=== PATIENT | female | born 1970 | race Caucasian/White ===

== ENCOUNTER 2017-04-07 09:18 | Emergency (ER) | payer MEDICAID ==
[~2017-04-07] VITALS: Ht 162.6 cm; Wt 63.5 kg
[~2017-04-07 09:18] MED LIST: IBUP-974 PO
[2017-04-07 09:38] VITALS: BP 169/73
--- NOTE | 2017-04-07 09:44 | NUR ---
Pt placed in bed 8.
--- NOTE | 2017-04-07 10:01 | NUR ---
46/F c/o nausea and anxiety approximately 2 hours. Patient had brought in her daughter for a suture removal and states "I started to feel anxious and nauseous as he was taking out the sutures." Pt c/o chills and nausea, denies vomiting. Denies pain. AOX4, japanese speaking. VSS.
--- NOTE | 2017-04-07 11:11 | NUR ---
Patient being evaluated by Dr. Archuleta at bedside.
[2017-04-07] MEDS ORDERED: ONDANSETRON 4 MG ODT PO ONE (11:20)
--- NOTE | 2017-04-07 11:47 | NUR ---
Dr. Archuleta re-evaluating patient at bedside. Pt verbalizes "I feel much better." Pt smiling and appears calm.
[2017-04-07 12:06] VITALS: BP 149/96
--- NOTE | 2017-04-07 12:07 | NUR ---
Patient discharged with v/s stable. Written and verbal after care instructions given and explained. Patient verbalized understanding. Ambulatory with steady gait. All questions addressed prior to discharge. Advised to follow up with PMD.
== END 2017-04-07 12:07 | disposition home or self-care (01) ==
LOC: MED 09:18
DX: F41.9 Anxiety disorder, unspecified (principal); I10 Essential (primary) hypertension
CPT/HCPCS: 99283; S0119

== ENCOUNTER 2017-07-23 15:57 | Emergency (ER) | payer MEDICAID ==
[~2017-07-23] VITALS: Ht 154.9 cm; Wt 71.2 kg
[2017-07-23 16:41] VITALS: BP 131/86
--- NOTE | 2017-07-23 18:00 | NUR ---
PATIENT C/O MID LFT ABDOMINAL PAIN 8/10 X 1 WK WITH NAUSEA; DENIES V/D HX OF HTN;RX OF LISINOPRIL 10MG QD .SKIN IS PINK/WARM/DRY; AAOX4 WITH EVEN AND STEADY GAIT; LUNGS CLEAR BL; HR EVEN AND REGULAR; PT DENIES ANY FEVER, CP, SOB, OR COUGH AT THIS TIME; PATIENT STATES PAIN OF 8/10 AT THIS TIME; VSS; PATIENT POSITIONED FOR COMFORT; HOB ELEVATED; BEDRAILS UP X2; BED DOWN. ER MD MADE AWARE OF PT STATUS.
--- NOTE | 2017-07-23 19:00 | NUR ---
PT RESTING ON BED;NO ACUTE DISTRESS NOTED;WILL CONTINUE TO MONITOR PT.
[2017-07-23 19:15] LABS: BASOPHILS # (AUTO) 0.2 K/uL (0.00-0.22); BASOPHILS % (AUTO) 1.4 % (0.0-2.0); EOSINOPHILS # (AUTO) 0.1 K/uL (0-0.4); EOSINOPHILS % (AUTO) 1.1 % (0.0-4.0); HEMATOCRIT 38.8 % (36-48); LYMPHOCYTES # (AUTO) 2.4 K/uL (2.5-16.5); LYMPHOCYTES % (AUTO) 21.3 % (20.5-51.1); MEAN CORPUSCULAR HEMOGLOBIN 29 pg (27-31); MEAN CORPUSCULAR HGB CONC 34 g/dL (33-37); MEAN CORPUSCULAR VOLUME 85 fL (80-94); MONOCYTES # (AUTO) 0.8 K/uL (0.8-1.0); MONOCYTES % (AUTO) 7.6 % (1.7-9.3); NEUTROPHILS # (AUTO) 7.6 K/uL (1.8-7.7); NEUTROPHILS % (AUTO) 68.6 % (42.2-75.2); PLATELET COUNT (AUTO) 192 K/uL (140-450); RED BLOOD CELL COUNT(AUTO) 4.55 MIL/uL (4.20-5.40); RED CELL DISTRIBUTION WIDTH 12.7 % (11.6-13.7); WHITE BLOOD COUNT (AUTO) 11.1 K/uL (4.8-10.8)
--- NOTE | 2017-07-23 19:16 | NUR ---
Pt report given to DAMEON HESS. Transfer of care at this time.
[2017-07-23 19:22] LABS: APPEARANCE,URINE CLEAR (CLEAR); BILIRUBIN,URINE NEGATIVE (NEGATIVE); BLOOD, URINE TRACE-I (NEGATIVE); COLOR,URINE YELLOW (YELLOW); LEUKOCYTE ESTERASE ,URINE NEGATIVE (NEGATIVE); NITRITE, URINE NEGATIVE (NEGATIVE); UGLUCOSE NEGATIVE (NEGATIVE)
[2017-07-23 19:37] LABS: CARBON DIOXIDE 26.6 mmol/L (21-32); CREATININE 0.7 mg/dL (0.6-1.3); POTASSIUM 3.6 mmol/L (3.5-5.1); TOTAL BILIRUBIN 0.3 mg/dL (0.0-1.0)
[2017-07-23 19:48] LABS: RBC,URINE 0-5 (RARE) /HPF (0-5); WBC,URINE 0-5 (RARE) /HPF (0-5)
[2017-07-23] MEDS ORDERED: KETOROLAC 30 MG/ML VIAL IM ONE (19:50)
[2017-07-23] MEDS ORDERED: ONDANSETRON 4 MG ODT PO ONE (19:50)
[2017-07-23 20:38] VITALS: BP 132/78
--- NOTE | 2017-07-23 20:38 | NUR ---
Patient discharged with v/s stable. Written and verbal after care instructions given and explained. Patient alert, oriented and verbalized understanding of instructions. Ambulatory with steady gait. All questions addressed prior to discharge. ID band removed. Patient advised to follow up with PMD. Rx of NAPROSYN 500MG ONE TAB 2 TIMES A DAY PRN PAIN given. Patient educated on indication of medication including possible reaction and side effects. Opportunity to ask questions provided and answered.
== END 2017-07-23 20:38 | disposition home or self-care (01) ==
LOC: MED 15:57
DX: R10.9 Unspecified abdominal pain (principal); R11.0 Nausea; I10 Essential (primary) hypertension
CPT/HCPCS: 36415; 74176; 80053; 81001; 81025; 83690; 85025; 96372; 99285; J1885; S0119

== ENCOUNTER 2019-10-26 16:21 | Emergency (ER) | payer MEDICAID ==
[~2019-10-26] VITALS: Ht 153.7 cm; Wt 72.1 kg
[2019-10-26 16:23] VITALS: BP 156/78
--- NOTE | 2019-10-26 16:23 | NUR ---
Patient JACOB DAS, triaged by RN and transferred to ED lobby to wait for an available bed.
--- NOTE | 2019-10-26 17:35 | NUR ---
TO ED 02, AMBULATORY.
--- NOTE | 2019-10-26 18:00 | NUR ---
BIB SELF C/O LEFT LOWER QUADRANT ABDOMINAL PAIN X3 WEEKS ACCOMPANIED WITH NAUSEA, PT DENIES ANY VOMITING/DIARRHEA. MASS FELT IN LEFT LOWER ABD, PT SAYS IT IS A CYST. REBOUND TENDERNESS PRESENT IN LOWER LEFT QUADRANT. DENIES ANY SOB/CHEST PAIN, BACK PAIN. BOWEL SOUNDS NORMOACTIVE IN ALL QUADRANTS. RESP EVEN AND UNLABORED. AAOX4, CAP REFILL <3. SKIN COOL/DRY. MUCOUS MEMBRANES PINK/MOIST. PMH: HTN NKA
[2019-10-26] MEDS ORDERED: MORPHINE SULFATE 4 MG/ML SYR IVP ONE (18:15)
[2019-10-26] MEDS ORDERED: ONDANSETRON 4 MG/2 ML VIAL IVP ONE (18:15)
[2019-10-26 18:35] LABS: BASOPHILS % (AUTO) 0.3 % (0.0-2.0); EOSINOPHILS # (AUTO) 0.1 K/uL (0-0.4); EOSINOPHILS % (AUTO) 0.8 % (0.0-4.0); HEMATOCRIT 37.6 % (36-48); LYMPHOCYTES # (AUTO) 2.4 K/uL (2.5-16.5); LYMPHOCYTES % (AUTO) 29.7 % (20.5-51.1); MEAN CORPUSCULAR HEMOGLOBIN 25 pg (27-31); MEAN CORPUSCULAR HGB CONC 32 g/dL (33-37); MEAN CORPUSCULAR VOLUME 76.9 fL (80-94); MONOCYTES # (AUTO) 0.5 K/uL (0.8-1.0); MONOCYTES % (AUTO) 6.4 % (1.7-9.3); NEUTROPHILS # (AUTO) 5.1 K/uL (1.8-7.7); NEUTROPHILS % (AUTO) 62.8 % (42.2-75.2); PLATELET COUNT (AUTO) 212 K/uL (140-450); RED BLOOD CELL COUNT(AUTO) 4.89 MIL/uL (4.20-5.40); RED CELL DISTRIBUTION WIDTH 20.4 % (11.6-13.7); WHITE BLOOD COUNT (AUTO) 8.2 K/uL (4.8-10.8)
[2019-10-26 18:50] LABS: ANION GAP 11.9 (8-16); CARBON DIOXIDE 25.8 mmol/L (21-32); CREATININE 0.7 mg/dL (0.6-1.3); POTASSIUM 3.7 mmol/L (3.5-5.1); TOTAL BILIRUBIN 0.2 mg/dL (0.0-1.0)
--- NOTE | 2019-10-26 20:07 | NUR ---
PT RESTING AT BEDSIDE. NO COMPLAINTS OF PAIN AT THIS TIME. VSS. ALL NEEDS MET. AT BEDSIDE
--- NOTE | 2019-10-26 20:55 | NUR ---
Patient discharged with v/s stable. Written and verbal after care instructions given and explained. Patient alert, oriented and verbalized understanding of instructions. Ambulatory with steady gait. Accompanied by . All questions addressed prior to discharge. ID band removed. Patient advised to follow up with PMD. Rx of NORCO, IBUPROFEN, AND ZOFRAN given. Patient educated on indication of medication including possible reaction and side effects. Opportunity to ask questions provided and answered.
[2019-10-26 20:56] LABS: APPEARANCE,URINE CLEAR (CLEAR); BILIRUBIN,URINE NEGATIVE (NEGATIVE); BLOOD, URINE 1+ (NEGATIVE); COLOR,URINE YELLOW (YELLOW); LEUKOCYTE ESTERASE ,URINE NEGATIVE (NEGATIVE); NITRITE, URINE NEGATIVE (NEGATIVE); UGLUCOSE NEGATIVE (NEGATIVE)
[2019-10-26 21:00] VITALS: BP 125/75
[2019-10-26 21:33] LABS: RBC,URINE 0-5 /HPF (0-5); WBC,URINE 0-5 /HPF (0-5)
== END 2019-10-26 20:55 | disposition home or self-care (01) ==
LOC: MED 16:21
DX: N83.202 Unspecified ovarian cyst, left side (principal); I10 Essential (primary) hypertension; Z79.899 Other long term (current) drug therapy
CPT/HCPCS: 36415; 76856; 80053; 81001; 81025; 83690; 85025; 93976; 96374; 96375; 99284; J2270; J2405; Q0092

== ENCOUNTER 2021-04-16 15:09 | Emergency (ER) | payer MEDICAID ==
[~2021-04-16] VITALS: Ht 157.5 cm; Wt 71.2 kg
[2021-04-16 15:31] VITALS: BP 188/107
--- NOTE | 2021-04-16 16:19 | NUR ---
50 Y/O F BIB FAMILY FROM HOME, C/O LOSS OF CENTRAL VISION IN R EYE, DENIES EYE INJURY, EYE PAIN. PT STATES SHE LOST VISION TODAY AROUND 0400. DENIES CP, FEVERS, SOB, N/V/D. PMH: HTN NKA MED: LISINOPRIL
--- NOTE | 2021-04-16 16:28 | NUR ---
Dr. Holland at the bedside evaluating patient.
--- NOTE | 2021-04-16 16:41 | NUR ---
Dr. Holland at the bedside performing ultrasound.
== END 2021-04-16 17:04 | disposition home or self-care (01) ==
LOC: MED 15:09
DX: H53.9 Unspecified visual disturbance (principal); I10 Essential (primary) hypertension; Z79.899 Other long term (current) drug therapy
CPT/HCPCS: 99284

== ENCOUNTER 2021-12-08 20:37 | Emergency (ER) | payer MEDICAID ==
[~2021-12-08] VITALS: Ht 154.9 cm; Wt 71.7 kg
[2021-12-08 20:55] VITALS: BP 188/102
--- NOTE | 2021-12-08 20:55 | NUR ---
NOTIFED ERMD OF RAMIREZ SYMPTOMS, ERMD TO EVAL PATIENT IN TRIAGE.
[2021-12-08] MEDS ORDERED: KETOROLAC 30 MG/ML VIAL IM ONE (22:35)
[2021-12-08] MEDS ORDERED: NAPR-54 PO (22:45)
[2021-12-08 23:31] VITALS: BP 148/72
== END 2021-12-08 23:31 | disposition home or self-care (01) ==
LOC: MED 20:37
DX: G44.209 Tension-type headache, unspecified, not intractable (principal); K04.7 Periapical abscess without sinus; I10 Essential (primary) hypertension; Z79.899 Other long term (current) drug therapy; Z88.5 Allergy status to narcotic agent
CPT/HCPCS: 96372; 99283; J1885

== ENCOUNTER 2021-12-15 18:49 | Emergency (ER) | payer MEDICAID ==
[~2021-12-15] VITALS: Ht 154.9 cm; Wt 73.2 kg
[~2021-12-15 18:49] MED LIST changes: +NAPR-54 PO
[2021-12-15 18:52] VITALS: BP 170/108
--- NOTE | 2021-12-15 19:00 | NUR ---
JAYLA, HANDED ON URINE CUP.
--- NOTE | 2021-12-15 20:00 | NUR ---
SEEN AND EXAMINED BY AISSATOU WITH ORDERS AND CARRIED OUT
[2021-12-15] MEDS ORDERED: KETOROLAC 30 MG/ML VIAL IM ONE (20:10)
[2021-12-15] MEDS ORDERED: PROCHLORPERAZINE 5 MG TAB PO ONE (20:10)
--- NOTE | 2021-12-15 20:20 | NUR ---
MEDICATED PER ERMDS ORDER, TOLERATED WELL.
[2021-12-15 21:25] VITALS: BP 140/82
[2021-12-15] MEDS ORDERED: KETOROLAC 30 MG/ML VIAL ONE (21:28)
[2021-12-15] MEDS ORDERED: PROCHLORPERAZINE 5 MG TAB ONE (21:29)
== END 2021-12-15 21:25 | disposition home or self-care (01) ==
LOC: MED 18:49
DX: G43.909 Migraine, unspecified, not intractable, without status migrainosus (principal); I10 Essential (primary) hypertension; Z79.899 Other long term (current) drug therapy; Z88.5 Allergy status to narcotic agent
CPT/HCPCS: 70450; 96372; 99284; J1885; Q0163; Q0164

== ENCOUNTER 2022-02-02 17:35 | Emergency (ER) | payer MEDICAID ==
[~2022-02-02] VITALS: Ht 165.1 cm; Wt 70.8 kg
[2022-02-02 17:59] VITALS: BP 163/82
--- NOTE | 2022-02-02 18:34 | NUR ---
51 Y/O FEMALE BIB C/O EPIGASTRIC PAIN 06/29 X2DAYS. DENIES N/V. DENIES ANY MEDICATION FOR PAIN. PMH: HTN ALLERGIES: MORPHINE
--- NOTE | 2022-02-02 18:34 | NUR ---
PT AMBULATED TO BED 4 WITH STEADY GAIT
[2022-02-02 19:08] LABS: ALBUMIN 4.1 g/dL (3.4-5.0); ANION GAP 9.9 (8-16); CARBON DIOXIDE 28.8 mmol/L (21-32); CREATININE 0.9 mg/dL (0.6-1.3); POTASSIUM 3.7 mmol/L (3.5-5.1); TOTAL BILIRUBIN 0.3 mg/dL (0.0-1.0)
[2022-02-02] MEDS ORDERED: KETOROLAC 60 MG/2 ML VIAL IM ONE (19:15)
--- NOTE | 2022-02-02 19:25 | NUR ---
Pt report given to BEBE JANSEN. Transfer of care at this time.
[2022-02-02 19:26] LABS: BASOPHILS % (AUTO) 0.3 % (0.0-2.0); EOSINOPHILS # (AUTO) 0.1 K/uL (0-0.4); EOSINOPHILS % (AUTO) 1.6 % (0.0-4.0); HEMATOCRIT 39.9 % (36-48); HEMOGLOBIN 13.7 g/dL (12.0-16.0); LYMPHOCYTES # (AUTO) 2.5 K/uL (2.5-16.5); LYMPHOCYTES % (AUTO) 36.6 % (20.5-51.1); MEAN CORPUSCULAR HEMOGLOBIN 30 pg (27-31); MEAN CORPUSCULAR HGB CONC 34 g/dL (33-37); MEAN CORPUSCULAR VOLUME 87.3 fL (80-94); MONOCYTES # (AUTO) 0.4 K/uL (0.8-1.0); MONOCYTES % (AUTO) 5.7 % (1.7-9.3); NEUTROPHILS # (AUTO) 3.9 K/uL (1.8-7.7); NEUTROPHILS % (AUTO) 55.8 % (42.2-75.2); PLATELET COUNT (AUTO) 197 K/uL (140-450); RED BLOOD CELL COUNT(AUTO) 4.57 MIL/uL (4.20-5.40); RED CELL DISTRIBUTION WIDTH 13.9 % (11.6-13.7)
--- NOTE | 2022-02-02 19:30 | NUR ---
RECIEVED REPORT FROM SHAVON
[2022-02-02] MEDS ORDERED: DICYCLOMINE HCL LIQUID 20 MG, ALUMINUM HYD/MAG/SIMETHICONE 30 ML, LIDOCAINE VISCOUS 2% ... PO ONE ×3 (19:45)
[2022-02-02] MEDS ORDERED: IBUP-2213 PO (19:52)
[2022-02-02] MEDS ORDERED: OMEP40EC24 PO (19:52)
[2022-02-02] MEDS ORDERED: DICYCLOMINE HCL LIQUID 10 MG/5 ML UDC ONE (19:57)
[2022-02-02] MEDS ORDERED: ALUMINUM HYD/MAG/SIMETHICONE 30 ML UDC ONE (19:57)
[2022-02-02 20:02] VITALS: BP 181/103
--- NOTE | 2022-02-02 20:02 | NUR ---
Patient discharged with v/s stable. Written and verbal after care instructions given and explained. Patient alert, oriented and verbalized understanding of instructions. Ambulatory with steady gait. All questions addressed prior to discharge. ID band removed. Patient advised to follow up with PMD. Rx of IBUPROFEN OMEPRAZOLE given. Patient educated on indication of medication including possible reaction and side effects. Opportunity to ask questions provided and answered.
== END 2022-02-02 20:02 | disposition home or self-care (01) ==
LOC: MED 17:35
DX: R10.13 Epigastric pain (principal); I10 Essential (primary) hypertension; Z79.1 Long term (current) use of non-steroidal anti-inflammatories (NSAID); Z88.5 Allergy status to narcotic agent
CPT/HCPCS: 36415; 80053; 83690; 85025; 96372; 99283; J1885

== ENCOUNTER 2023-01-06 20:23 | Emergency (ER) | payer MEDICAID ==
[~2023-01-06] VITALS: Ht 154.9 cm; Wt 72.1 kg
[~2023-01-06 20:23] MED LIST changes: +IBUP-2213 PO; +OMEP40EC24 PO
[2023-01-06 21:42] VITALS: BP 158/79
--- NOTE | 2023-01-06 23:58 | NUR ---
Covid/Influ swab collected and sent to lab.
[2023-01-07] MEDS ORDERED: BENZ-300 PO (00:02)
[2023-01-07] MEDS ORDERED: BENZ200C4 PO (00:02)
[2023-01-07] MEDS ORDERED: AMOX500C25 PO (00:02)
--- NOTE | 2023-01-07 00:15 | NUR ---
Patient discharged with v/s stable. Written and verbal after care instructions given and explained. Patient alert, oriented and verbalized understanding of instructions. All questions addressed prior to discharge. ID band removed. Patient advised to follow up with PMD. Rx sent to preferred pharmacy. Patient educated on indication of medication including possible reaction and side effects. Opportunity to ask questions provided and answered.
[2023-01-07 00:24] VITALS: BP 158/79
== END 2023-01-07 00:15 | disposition home or self-care (01) ==
LOC: MED 20:23
DX: J02.9 Acute pharyngitis, unspecified (principal); Z20.822 Contact with and (suspected) exposure to COVID-19; I10 Essential (primary) hypertension; Z79.899 Other long term (current) drug therapy; Z79.1 Long term (current) use of non-steroidal anti-inflammatories (NSAID); Z79.2 Long term (current) use of antibiotics; Z88.5 Allergy status to narcotic agent
CPT/HCPCS: 99283

== ENCOUNTER 2023-07-15 17:04 | Emergency (ER) | payer MEDICAID ==
[~2023-07-15] VITALS: Ht 152.4 cm; Wt 76.7 kg
[~2023-07-15 17:04] MED LIST changes: +AMOX500C25 PO; +BENZ-300 PO; +BENZ200C4 PO
[2023-07-15 17:15] VITALS: BP 169/86; PULSE 94; RESP 18; TEMP 97.7; O2SAT 98
[2023-07-15] MEDS ORDERED: BACTO TP (17:36)
== END 2023-07-15 17:50 | disposition home or self-care (01) ==
LOC: MED 17:04
DX: S00.81XA Abrasion of other part of head, initial encounter (principal); I10 Essential (primary) hypertension; Z88.5 Allergy status to narcotic agent; Z79.899 Other long term (current) drug therapy; X58.XXXA Exposure to other specified factors, initial encounter; Y93.89 Activity, other specified; Y92.89 Other specified places as the place of occurrence of the external cause; Y99.8 Other external cause status
CPT/HCPCS: 99283

== ENCOUNTER 2023-11-19 09:57 | Emergency (ER) | payer MEDICAID ==
[~2023-11-19] VITALS: Ht 167.6 cm; Wt 74.4 kg
[~2023-11-19 09:57] MED LIST changes: +BACTO TP
[2023-11-19 10:12] VITALS: BP 156/104; PULSE 106; RESP 19; TEMP 98.4; O2SAT 97
[2023-11-19 12:57] VITALS: BP 145/80; PULSE 91; RESP 16; O2SAT 97
== END 2023-11-19 12:58 | disposition home or self-care (01) ==
LOC: MED 09:57
DX: R07.89 Other chest pain (principal); I10 Essential (primary) hypertension; Z88.5 Allergy status to narcotic agent; Z79.899 Other long term (current) drug therapy
CPT/HCPCS: 93005; 99283

== ENCOUNTER 2023-12-24 19:28 | Emergency (ER) | payer MEDICAID ==
[~2023-12-24] VITALS: Ht 162.6 cm; Wt 73.9 kg
[2023-12-24 19:50] VITALS: BP 160/98; PULSE 88; RESP 17; TEMP 97.9; O2SAT 98
[2023-12-24] MEDS: KETOROLAC 30 MG/ML VIAL IM ONE (20:14)
[2023-12-24 20:30] VITALS: BP 172/102; PULSE 98; RESP 15; O2SAT 98
[2023-12-24 20:48] LABS: BASOPHILS % (AUTO) 0.3 % (0.0-2.0); EOSINOPHILS # (AUTO) 0.1 K/uL (0-0.4); EOSINOPHILS % (AUTO) 0.9 % (0.0-4.0); HEMATOCRIT 41.9 % (36-48); HEMOGLOBIN 14.3 g/dL (12.0-16.0); LYMPHOCYTES # (AUTO) 2.5 K/uL (2.5-16.5); MEAN CORPUSCULAR HEMOGLOBIN 30 pg (27-31); MEAN CORPUSCULAR HGB CONC 34 g/dL (33-37); MEAN CORPUSCULAR VOLUME 86.8 fL (80-94); MONOCYTES % (AUTO) 7.7 % (1.7-9.3); NEUTROPHILS # (AUTO) 9.3 K/uL (1.8-7.7); NEUTROPHILS % (AUTO) 72.1 % (42.2-75.2); PLATELET COUNT (AUTO) 186 K/uL (140-450); RED BLOOD CELL COUNT(AUTO) 4.83 MIL/uL (4.20-5.40); RED CELL DISTRIBUTION WIDTH 13.9 % (11.6-13.7); WHITE BLOOD COUNT (AUTO) 12.9 K/uL (4.8-10.8)
[2023-12-24 20:56] LABS: ANION GAP 13.1 (8-16); CARBON DIOXIDE 28.2 mmol/L (21-32); CREATININE 0.9 mg/dL (0.6-1.3); POTASSIUM 4.3 mmol/L (3.5-5.1)
[2023-12-24] MEDS ORDERED: IBUP-2213 PO (21:43)
[2023-12-24] MEDS ORDERED: CYCL-711 PO (21:43)
[2023-12-24] MEDS ORDERED: METF-346 PO (21:43)
[2023-12-24] MEDS ORDERED: DICL100G32 TP (21:43)
== END 2023-12-24 22:10 | disposition home or self-care (01) ==
LOC: MED 19:28
DX: M75.31 Calcific tendinitis of right shoulder (principal); R50.9 Fever, unspecified; I10 Essential (primary) hypertension; Z88.5 Allergy status to narcotic agent; Z79.899 Other long term (current) drug therapy
CPT/HCPCS: 36415; 73030; 80048; 85025; 85651; 86140; 96372; 99284; J1885; Q0092